=== PATIENT | male | born 1960 | race Two or more races ===

== ENCOUNTER 2021-11-03 09:00 | Inpatient (IN) | payer OTHER ==
[~2021-11-03] VITALS: Ht 167.6 cm; Wt 117.0 kg
[2021-11-03] MEDS ORDERED: LOSARTAN POTASS50 MG (12:29)
[2021-11-08] MEDS ORDERED: ULTRACET PO (11:17)
== END 2021-11-08 12:31 | disposition home or self-care (01) | DRG 395 ==
LOC: SURH 11-07 07:00 → O/R 11-07 07:05 → SURG 11-07 07:05 → SURH 11-07 09:00 → SURG 11-08 00:03
PROVIDERS: ADMIT Surgery; ATTEND Surgery
PROC: 0DJD8ZZ Inspection of Lower Intestinal Tract, Via Natural or Artificial Opening Endoscopic (ICD-10-PCS; 2021-11-07)
PROC: 3E0T3BZ Introduction of Anesthetic Agent into Peripheral Nerves and Plexi, Percutaneous Approach (ICD-10-PCS; 2021-11-07)
PROC: 0DBP8ZZ Excision of Rectum, Via Natural or Artificial Opening Endoscopic (ICD-10-PCS; principal; 2021-11-07 07:00)
DX: D12.8 Benign neoplasm of rectum (principal); Z20.822 Contact with and (suspected) exposure to COVID-19